=== PATIENT | male | born 1960 | race American Indian/Alaskan Native ===

== ENCOUNTER 2018-05-20 08:48 | Emergency (ER) | payer OTHER ==
[2018-05-20 09:22] VITALS: RESP 18; O2SAT 99
[2018-05-20] MEDS ORDERED: Morphine 2 mg/ml ISec IM STA (10:05)
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
[2018-05-20 11:15] VITALS: BP 125/90; PULSE 82; TEMP 97.6
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
== END 2018-05-20 11:38 | disposition home or self-care (01) ==
LOC: ED 08:48
DX: S46.001A Unspecified injury of muscle(s) and tendon(s) of the rotator cuff of right shoulder, initial encounter (principal); V49.9XXA Car occupant (driver) (passenger) injured in unspecified traffic accident, initial encounter; E11.9 Type 2 diabetes mellitus without complications
CPT/HCPCS: 29240; 73000; 73010; 73030; 73060; 73562; 96372; 99282; J2270